=== PATIENT | male | born 1980 | race Caucasian/White ===

== ENCOUNTER 2016-06-30 10:13 | Emergency (ER) | payer OTHER ==
[2016-06-30 11:14] LABS: RED BLOOD COUNT 5.17 M/UL (4.20-5.50); WHITE BLOOD COUNT 12.5 K/UL (4.5-11.0)
[2016-06-30 11:31] LABS: BUN/CREATININE RATIO 5 (0-10)
[2016-07-03] MEDS ORDERED: HYDROCODON-ACE1 EAC4 PO (10:55)
[2016-07-03] MEDS ORDERED: TYLENOL PM EX-1 EACH PO (10:56)
[2016-07-03] MEDS ORDERED: PERCOCET 10-321 EACH PO (16:23)
== END 2016-06-30 14:44 | disposition home or self-care (01) ==
LOC: ER1 10:13
PROVIDERS: Physician Assistant
DX: S09.90XA Unspecified injury of head, initial encounter (principal); S82.831A Other fracture of upper and lower end of right fibula, initial encounter for closed fracture; S30.0XXA Contusion of lower back and pelvis, initial encounter; S60.511A Abrasion of right hand, initial encounter; V86.69XA Passenger of other special all-terrain or other off-road motor vehicle injured in nontraffic accident, initial encounter; F17.200 Nicotine dependence, unspecified, uncomplicated
CPT/HCPCS: 29515; 36415; 70450; 71250; 72125; 73590; 73610; 80053; 81001; 83690; 85025; 96374; 96375; 96376; 99284; J2270; J2405

== ENCOUNTER → 2016-07-03 | Day surgery (SDC) | payer OTHER ==
[~2016-07-03] MED LIST: HYDROCODON-ACE1 EAC4 PO; PERCOCET 10-321 EACH PO; TYLENOL PM EX-1 EACH PO
[2016-07-03 10:41] LABS: HEMOGLOBIN 16.5 gm/dl (14.0-17.5); RED BLOOD COUNT 5.43 M/UL (4.20-5.50); WHITE BLOOD COUNT 9.6 K/UL (4.5-11.0)
[2016-07-03 10:57] LABS: BUN/CREATININE RATIO 8 (0-10)
== END | disposition home or self-care (01) ==
LOC: OR 08:55
PROVIDERS: Orthopaedic Surgery
PROC: 0QSJ04Z Reposition Right Fibula with Internal Fixation Device, Open Approach (ICD-10-PCS; 2016-07-03)
PROC: 0QSG04Z Reposition Right Tibia with Internal Fixation Device, Open Approach (ICD-10-PCS; principal; 2016-07-03 11:00)
DX: S82.861A Displaced Maisonneuve's fracture of right leg, initial encounter for closed fracture (principal); F17.210 Nicotine dependence, cigarettes, uncomplicated; V89.2XXA Person injured in unspecified motor-vehicle accident, traffic, initial encounter
CPT/HCPCS: 36415; 73610; 76000; 80048; 85025; 93005; C1713; J0171; J0690; J2250; J2795; J3010; J7120

== ENCOUNTER 2021-07-08 17:20 | Emergency (ER) | payer OTHER ==
[~2021-07-08 17:20] MED LIST changes: -ELIQUIS 5 MG TAB5 MG PO
[2021-07-08] MEDS ORDERED: ELIQUIS 5 MG TAB5 MG PO (19:33)
== END 2021-07-08 19:48 | disposition home or self-care (01) ==
LOC: ER1 17:20
DX: I82.432 Acute embolism and thrombosis of left popliteal vein (principal); I82.412 Acute embolism and thrombosis of left femoral vein
CPT/HCPCS: 99283

== ENCOUNTER → 2021-07-08 | Outpatient (CLI) | payer OTHER ==
[~2021-07-08] MED LIST changes: +ELIQUIS 5 MG TAB5 MG PO; +PERCOCET 5/325 T1 EA PO
[2021-07-08 16:47] LABS: RED BLOOD COUNT 5.68 M/UL (4.20-5.50)
[2021-07-08 17:28] LABS: BUN/CREATININE RATIO 11 (0-10)
== END ==
LOC: US 15:26
PROVIDERS: Nurse Practitioner
DX: M79.605 Pain in left leg (principal); R22.42 Localized swelling, mass and lump, left lower limb; I82.4Z2 Acute embolism and thrombosis of unspecified deep veins of left distal lower extremity; I82.432 Acute embolism and thrombosis of left popliteal vein; I82.442 Acute embolism and thrombosis of left tibial vein
CPT/HCPCS: 36415; 73564; 80053; 82550; 85025; 93971